=== PATIENT | female | born 1995 | race Caucasian/White ===

== ENCOUNTER 2018-07-06 12:08 | Emergency (ER) | payer BC, SELFPAY ==
[2018-07-06] VITALS (8 sets, daily range): BP systolic 122–143; BP diastolic 71–81; PULSE 77–88; RESP 14–20; TEMP 36.6; O2SAT 97–99; BMI 26.6
--- NOTE | 2018-07-06 12:23 | ED.VISSUMM ---
- ER Visit Summary Date of Service: 07/06/18 Chief Complaint: Suicidal ideation History of Present Illness: The patient is a 22 F presenting with suicidal ideation. She was brought into the ED today by her counselor. She states yesterday she had thought about overdosing on Vicodin. Her roommate stopped her from doing this. She saw her counselor today. She states she has been overwhelmed with school. She states she is under a lot of stress to do well. She is not currently on any medications for depression. She admits to alcohol use several times per week. Denies tobacco or drug use. Physical Examination: Vitals are stable. Patient is afebrile. Alert no acute distress. HEENT exam is unremarkable. Neck is supple. Lungs are clear and equal bilaterally. Heart is regular rate and rhythm. Extremities are unremarkable. Skin is warm and dry. No focal neurologic deficit. Depressed affect with suicidal ideation Remainder of exam is unremarkable. Emergency Department Course and Treatment: CBC, chemistries unremarkable. HCG negative. Alcohol and tox are negative. Discussed with the counseling center for evaluation. Disposition: Per counseling center Impression: Suicidal ideation This note was generated with [employer] dictation software. It may contain incorrect words, spelling, and punctuation that were not noted in review of the chart prior to signing ED Disposition - Plan for ED Patient: Chief Complaint: Suicidal
--- NOTE | 2018-07-06 13:00 | ED.RN ---
SITTER AT BEDSIDE. ONE ON ONE MONITORING INITIATED.
--- NOTE | 2018-07-06 13:01 | ED.RN ---
ONE TO ONE OBSERVATION.
[2018-07-06 13:09] LABS: Absolute Lymphocyte Count 1.28 X10^3/ul (0.83-4.51); Absolute Neutrophil Count 6.7 X10^3/uL (2.0-7.7); Basophil# 0.03 X10^3/uL; Basophil% 0.4 % (0-1); Eosinophil# 0.01 X10^3/uL; Eosinophils% 0.1 % (0-5); Hematocrit 43.7 % (37-47); Hemoglobin 15.3 g/dl (12.0-15.0); Lymphocyte # 1.28 X10^3/ul (4.0); Lymphocyte % 15.3 % (19-41); Mean Corpuscular Hgb 31.8 pg (27.0-32.0); Mean Corpuscular Volume 90.9 fL (81-99); Monocyte% 3.6 % (0-10); Neutrophil # 6.74 X10^3/uL (2.7-7.7); Neutrophil % 80.5 % (47-70); Platelet Count 256 K/mm3 (150-450); RBC Distribution Width CV 12.6 % (11.6-14.6); RBC Distribution Width SD 41.9 fl (35.1-43.9); Red Blood Count 4.81 M/mm3 (4.2-5.4); White Blood Count 8.4 K/mm3 (4.4-11.0)
[2018-07-06 13:11] LABS: POSITIVE COUNT NO; POSITIVE DIFFERENTIAL NO; POSITIVE MORPHOLOGY NO
[2018-07-06 13:17] LABS: Anion Gap 11 (5-15); BUN 14 mg/dL (7-18); BUN/Creat Ratio 14.4 RATIO (10-20); Calcium,Total 9.3 mg/dL (8.5-10.1); Chloride 105 mmol/L (98-107); Creatinine, Serum 0.97 mg/dL (0.55-1.02); EST Glomerular Filtration Rate 76 mL/min (>60); Est Glom Filt Rate - Afr Amer 92 mL/min (>60); Estimated Creatinine Clearance 89.22 ml/min; Glucose 96 mg/dL (74-106); Potassium 3.8 mmol/L (3.5-5.1); Sodium Level 141 mmol/L (136-145)
[2018-07-06 13:23] LABS: Amphetamine Urine VISTA NEGATIVE (<1000 ng/mL); Barbiturate Urine VISTA NEGATIVE (< 200 ng/mL); Benzodiazepine Urine VISTA NEGATIVE (< 200 ng/mL); Cocaine Urine VISTA NEGATIVE (< 300 ng/mL); Ecstacy Urine VISTA NEGATIVE (< 500 ng/mL); Methadone Urine VISTA NEGATIVE (< 300 ng/mL); PCP Urine VISTA NEGATIVE (< 25 ng/mL); THC Urine VISTA NEGATIVE (< 50 ng/mL); Vista UDS pH Range 6
[2018-07-06 13:41] LABS: Alcohol, Blood (Medical)-Serum < 3.0 mg/dL
[2018-07-06 13:49] LABS: Pregnancy, Serum, hCG Quali. NEGATIVE Negative (0-9 Nonpreg)
--- NOTE | 2018-07-06 13:54 | NURSING ---
LISA, CRISIS, AWARE OF PATIENT BEING MEDICALLY CLEARED
--- NOTE | 2018-07-06 18:01 | NURSING ---
CALLED [facility], ETA IS LONG CALLED [facility] FOR TRANSPORT, ETA IS ABOUT HALF HOUR
== END 2018-07-06 19:00 | disposition short-term general hospital (02) ==
PROVIDERS: Emergency Provider Emergency Medicine
DX: R45.851 Suicidal ideations (principal); Z72.89 Other problems related to lifestyle
CPT/HCPCS: 36415; 80048; 80307; 80320; 84703; 85025; 99285; G0480

== ENCOUNTER 2019-01-23 17:51 | Emergency (ER) | payer SELFPAY ==
[2019-01-23 17:52] VITALS: BP 95/73; PULSE 97; RESP 19; TEMP 36.3; O2SAT 100
--- NOTE | 2019-01-23 18:14 | ED.RN ---
MOM CALLED IN TO CHECK ON PT. GIVEN UPDATE. MOM REPORTS SHE WILL NOT BE COMING IN AT THIS TIME, BUT TO CALL HER IF NEED BE. MOM'S PHONE NUMBER IS [phone] ([phone])
[2019-01-23] MEDS: Ondansetron 4 MG/2 ML Vial IV (18:25)
[2019-01-23] MEDS: 0.9% Normal Saline 1,000 ML 150 ML IV (18:25)
[2019-01-23 18:33] LABS: Absolute Lymphocyte Count 3.06 X10^3/ul (0.83-4.51); Absolute Neutrophil Count 4.1 X10^3/uL (2.0-7.7); Basophil# 0.05 X10^3/uL; Basophil% 0.7 % (0-1); Eosinophil# 0.05 X10^3/uL; Eosinophils% 0.7 % (0-5); Hematocrit 41.1 % (37-47); Hemoglobin 14.3 g/dl (12.0-15.0); Lymphocyte # 3.06 X10^3/ul (4.0); Lymphocyte % 40.9 % (19-41); Mean Corp Hgb Conc 34.8 g/gl (32-36); Mean Corpuscular Hgb 31.2 pg (27.0-32.0); Mean Corpuscular Volume 89.7 fL (81-99); Mean Platelet Vol. 10.1 fl (6.2-12.0); Monocyte# 0.25 X10^3/uL; Monocyte% 3.3 % (0-10); Neutrophil # 4.07 X10^3/uL (2.7-7.7); Neutrophil % 54.3 % (47-70); Platelet Count 313 K/mm3 (150-450); RBC Distribution Width CV 12.9 % (11.6-14.6); RBC Distribution Width SD 41.6 fl (35.1-43.9); Red Blood Count 4.58 M/mm3 (4.2-5.4); White Blood Count 7.5 K/mm3 (4.4-11.0)
[2019-01-23 18:36] LABS: POSITIVE COUNT NO; POSITIVE DIFFERENTIAL NO; POSITIVE MORPHOLOGY NO
[2019-01-23 18:48] LABS: Anion Gap 8 (5-15); BUN 9 mg/dL (7-18); BUN/Creat Ratio 9.5 RATIO (10-20); Chloride 107 mmol/L (98-107); Creatinine, Serum 0.95 mg/dL (0.55-1.02); EST Glomerular Filtration Rate 78 mL/min (>60); Est Glom Filt Rate - Afr Amer 95 mL/min (>60); Estimated Creatinine Clearance 114.23 ml/min; Glucose 111 mg/dL (74-106); Potassium 3.9 mmol/L (3.5-5.1); Sodium Level 140 mmol/L (136-145)
--- NOTE | 2019-01-23 18:51 | CT_ITS ---
STUDY: CT BRAIN WITHOUT CONTRAST REASON FOR EXAM: Female, 23 years old. Altered mental status RADIATION DOSAGE (If Supplied By Facility): CTDIvol = ( 44.99 ) mGy, DLP = ( 1558.47 ) mGycm TECHNIQUE: Transaxial CT imaging of the brain was performed without administration of intravenous contrast material. Individualized dose optimization techniques were used for this CT. COMPARISON: No relevant priors. FINDINGS: Normal soft tissue structures. Normal calvarium. Normal size ventricles and extra-axial spaces for the patient's age. Normal white matter tracts of the cerebral hemispheres. Normal basal ganglia and thalami. Normal brainstem. Normal cerebellum. There is no intracranial hemorrhage. There are no findings of an acute ischemic infarction. Normal visualized paranasal sinuses. CT/Brain/Head without Contrast IMPRESSION: Normal unenhanced CT scan of the brain. Electronically Signed: Kd Ortega MD at 20:32 EDT , Service support ,
[2019-01-23] MEDS: Haloperidol Lactate 5 MG/ML Vial 2 MG IM (18:58)
[2019-01-23] MEDS: LORazepam 2 MG/ML Syringe 0.5 MG IV ×2 (18:58→21:54)
[2019-01-23 19:00] VITALS: PULSE 109; RESP 19; O2SAT 100
[2019-01-23 19:01] LABS: Pregnancy, Serum, hCG Quali. NEGATIVE Negative (0-9 Nonpreg)
--- NOTE | 2019-01-23 19:01 | ED.RN ---
Addendum entered by Lou Irwin 01/23/19 19:07: need to add to note. pt was placed in soft wrist and ankle restraints. Original Note: pt speaking in namibian and yellowing,very tearful. multiple staff has tried to calm pt, and sit at bedside. pt continues to try to get out of bed and will not cooperate. staff is worried about pt's safety, pt placed in soft wrist restraints at 1840.
[2019-01-23 19:06] VITALS: BP 139/108
[2019-01-23] MEDS: Haloperidol Lactate 5 MG/ML Vial 3 MG IM (19:18)
[2019-01-23] MEDS: DiphenhydrAMINE 50 MG/ML Syringe 25 MG IV ×2 (19:18→21:53)
[2019-01-23 19:31] VITALS: BP 103/49; PULSE 86; RESP 18; O2SAT 100
--- NOTE | 2019-01-23 21:42 | ED.RN ---
[facility] called and updated on patients condition at this time
[2019-01-23 22:00] VITALS: BP 119/102; PULSE 140; RESP 22; O2SAT 100
--- NOTE | 2019-01-23 22:15 | NURSING ---
PT VERY RESTLESS. PT SITTING UP AND ATTEMPTING TO GET OUT OF BED. MD AWARE MEDS NOT HELPING. MONITOR ST 130'S
[2019-01-23 23:09] VITALS: BP 104/64; PULSE 83; RESP 15; O2SAT 98
[2019-01-24 00:06] VITALS: BP 105/78; PULSE 75; RESP 16; O2SAT 98
[2019-01-24 01:05] VITALS: BP 108/85; PULSE 80; RESP 16; O2SAT 98
--- NOTE | 2019-01-24 01:06 | ED.VISSUMM ---
- ER Visit Summary Date of Service: 01/23/19 Chief Complaint: Intoxication History of Present Illness: The patient is a 23 F who was brought in from the [facility] for alcohol intoxication. Patient will open her eyes to command. She denies pain. She has slurred speech. On review of records patient has history of anxiety and depression. Nursing staff spoke with mother who does report a history of psychiatric illness. Mother had lunch with patient yesterday and she seemed in good spirits. Physical Examination: Vital signs unremarkable. When I enter the room patient sleeping. Pulse ox is slightly low. She is repositioned and nasal cannula was placed. Head neck examination does reveal small abrasion to the left maxilla. Heart is regular rate and rhythm. Lung sounds are clear. Abdomen is soft nontender. Extremity examination was abrasions to her right palm. She will move all 4 extremities to command. Initially patient will open eyes to command. She will answer simple questions. Test Results: CBC and chemistry studies unremarkable. test negative. EtOH is 277. Emergency Department Course and Treatment: Shortly after I left the room patient became increasingly agitated. Multiple attempts at redirection were made. She was yelling at us in both Puerto Rican and Samoan. She attempted to kick in pinch staff members. Restraints were placed. Patient required Haldol, Ativan, and Benadryl for sedation. Because the patient did have abrasions noted, she did go to CT for scan of her head to ensure no significant head injury. CT of the head returned normal. Patient initially had been taken out of her lower extremity restraints. She did get increasingly agitated again. She received a second dose of Benadryl and Ativan. This did calm the patient prior to requiring a second dose of Haldol. On last eval patient was sitting upright, eyes open and answering questions. She does not remember what happened from this evening. When I explained to her what happened she stated I am not surprised. At this time patient has been sleeping comfortably. She will be observed until able to ambulate. Patient should be legally sober within the next 1-2 hours. She will be discharged back to the [facility] to be observed. Treatment Plan: [] Disposition: Anticipated discharge Impression: EtOH intoxication This note was generated with [employer] dictation software. It may contain incorrect words, spelling, and punctuation that were not noted in review of the chart prior to signing ED Disposition - Plan for ED Patient: Referrals: Care Physician,No Primary [Primary Care Provider] -
--- NOTE | 2019-01-24 01:13 | ED.DCSUM_ITS ---
- ER Visit Summary Date of Service: 01/23/19 Chief Complaint: Intoxication History of Present Illness: The patient is a 23 F who was brought in from the [facility] for alcohol intoxication. Patient will open her eyes to command. She denies pain. She has slurred speech. On review of records patient has history of anxiety and depression. Nursing staff spoke with mother who does report a history of psychiatric illness. Mother had lunch with patient yesterday and she seemed in good spirits. Physical Examination: Vital signs unremarkable. When I enter the room patient sleeping. Pulse ox is slightly low. She is repositioned and nasal cannula was placed. Head neck examination does reveal small abrasion to the left maxilla. Heart is regular rate and rhythm. Lung sounds are clear. Abdomen is soft nontender. Extremity examination was abrasions to her right palm. She will move all 4 extremities to command. Initially patient will open eyes to command. She will answer simple questions. Test Results: CBC and chemistry studies unremarkable. test negative. EtOH is 277. Emergency Department Course and Treatment: Shortly after I left the room patient became increasingly agitated. Multiple attempts at redirection were made. She was yelling at us in both Bahamian and Czech. She attempted to kick in pinch staff members. Restraints were placed. Patient required Haldol, Ativan, and Benadryl for sedation. Because the patient did have abrasions noted, she did go to CT for scan of her head to ensure no significant head injury. CT of the head returned normal. Patient initially had been taken out of her lower extremity restraints. She did get increasingly agitated again. She received a second dose of Benadryl and Ativan. This did calm the patient prior to requiring a second dose of Haldol. On last eval patient was sitting upright, eyes open and answering questions. She does not remember what happened from this evening. When I explained to her what happened she stated I am not surprised. At this time patient has been sleeping comfortably. She will be observed until able to ambulate. Patient should be legally sober within the next 1-2 hours. She will be discharged back to the [facility] to be observed. Treatment Plan: [] Disposition: Anticipated discharge Impression: EtOH intoxication This note was generated with [employer] dictation software. It may contain incorrect words, spelling, and punctuation that were not noted in review of the chart prior to signing ED Disposition - Plan for ED Patient: Referrals: Care Physician,No Primary [Primary Care Provider] -
--- NOTE | 2019-01-24 01:13 | ED.DEP ---
ED Disposition - Plan for ED Patient: Disposition: Home or Assisted Living Instructions: ED Alcohol Intoxication [facility] -
--- NOTE | 2019-01-24 01:14 | DCINST.ED_ITS ---
ED Disposition - Plan for ED Patient: Disposition: Home or Assisted Living Instructions: ED Alcohol Intoxication [facility] -
[2019-01-24 02:04] VITALS: BP 118/76; PULSE 74; RESP 16; O2SAT 96
--- NOTE | 2019-01-24 02:51 | ED.RN ---
[facility] called and updated on patients condition at this time
[2019-01-24 03:22] VITALS: BP 122/87; PULSE 100; RESP 19; O2SAT 100
== END 2019-01-24 03:23 | disposition home or self-care (01) ==
PROVIDERS: Emergency Provider Emergency Medicine
DX: F10.129 Alcohol abuse with intoxication, unspecified (principal); Y90.8 Blood alcohol level of 240 mg/100 ml or more; F32.9 Major depressive disorder, single episode, unspecified; F41.9 Anxiety disorder, unspecified
CPT/HCPCS: 70450; 80048; 80320; 84703; 85025; 96361; 96372; 96374; 96375; 96376; 99285; J7030; A4216; G0480; J2405